=== PATIENT | male | born 1960 | race Caucasian/White ===

== ENCOUNTER → 2021-12-14 | Day surgery (SDC) | payer OTHER ==
[~2021-12-14] VITALS: Ht 167.6 cm; Wt 95.0 kg
[~2021-12-14] MED LIST: 0.9 % SODIUM CHLORIDE 10 ML DISP.SYRIN. IV PRN; ALBUTEROL SULFATE 2.5 MG/3 ML NEBU. NEB PRN; EPINEPHrine 1 MG/ML VIAL INJ PRN; HYDROmorphone 2 MG/ML INJ. IVP PRN; IV RINGERS,LACTATED 1000ML 1,000 ML IV SCH; LIDOCAINE 1% Multi-Dose 20 ML VIAL. INJ PRN; LIDOCAINE 2% PF 5 ML VIAL. ONE; LIDOCAINE 2% VISCOUS 100 ML BOTTLE. MM PRN; LIDOCAINE 4% TOPICAL 50 ML SOLUTION. MM PRN; MORPHINE SULFATE 2 MG/ML INJ. IVP PRN; PROCHLORPERAZINE 10 MG/2 ML VIAL. IVP PRN; PROPOFOL 10 MG/ML (20ML) VIAL. IV ONE; fentaNYL PF VIAL 100 MCG/2 ML VIAL IVP PRN
[2021-12-14 08:48] VITALS: BP 144/90
[2021-12-14 09:03] LABS: BASO # 0.1 x10^3/uL (0.0-0.2); BASO % 1 % (0-3); EOS # 1.3 x10^3/uL (0.0-0.7); EOS % 15 % (0-3); HEMATOCRIT 46.5 % (39.0-53.0); HEMOGLOBIN 15.9 g/dL (13.0-17.5); LYMPH # 1.5 x10^3/uL (1.0-4.8); LYMPH % 17 % (24-48); MEAN CORPUSCULAR HEMOGLOBIN 34 pg (25-35); MEAN CORPUSCULAR HGB CONC 34 g/dL (31-37); MEAN CORPUSCULAR VOLUME 100 fL (79-100); MONO # 0.5 x10^3/uL (0.0-1.1); MONO % 6 % (0-9); NEUT # 5.2 x10^3/uL (1.8-7.7); NEUT % 60 % (31-73); PLATELET COUNT 213 x10^3/uL (140-400); RED BLOOD COUNT 4.65 x10^6/uL (4.30-5.70); RED CELL DISTRIBUTION WIDTH 13.2 % (11.5-14.5); WHITE BLOOD COUNT 8.6 x10^3/uL (4.0-11.0)
[2021-12-14 09:13] LABS: PROTHROMBIN TIME PATIENT 12.1 SEC (11.7-14.0)
[2021-12-14 10:09] LABS: % BANDS 1 % (0-9); % EOS 7 % (0-5); % LYMPHS 23 % (24-48); % MONOS 5 % (0-10); % SEGS 64 % (35-66)
[2021-12-14 10:10] LABS: PLT ESTIMATE ADEQUATE (ADEQUATE)
[2021-12-14 10:30] VITALS: BP 188/82
--- NOTE | 2021-12-14 12:22 | OP ---
DATE OF SURGERY: 12/14/2021 BRONCHOSCOPY NOTE INDICATION: Abnormal CT chest, rule out mucus plug. DESCRIPTION OF PROCEDURE: Informed consent was obtained from the patient. All risks and benefits were explained. He agreed to proceed with the procedure. Propofol was used by anesthesia for sedation. Bronchoscopy was initially attempted through the left nostril, but they were tightened and it was later introduced through the right nostril. The upper airway was passed. Trachea was entered. No tracheal lesions seen. Mellisa was sharp. Left lung was examined. Upon inspection of the left lower lobe bronchus. Immediately, there was a minimal white secretions seen. Saline irrigation done. Secretions were removed. A bronchoalveolar lavage performed from the left lower lobe. Small amount of fluid was obtained. No definite endobronchial lesion seen. Left upper lobe and lingula were patent. The right lung was quickly examined. The patient had no significant secretions or any airway lesion in the right upper, right middle or right lower lobe. The patient did drop saturations during the procedure in the high 50s. The patient's saturations quickly came back with high-flow oxygen. IMPRESSION: 1. Minimal white secretions seen in the left lower lobe posteromedially. 2. No endobronchial lesion seen. 3. Bronchoalveolar lavage performed from the left lower lobe. 4. Follow the culture results. JOANNA DR: Coretta TID: [id number]
== END | disposition home or self-care (01) ==
LOC: SURG 08:28
PROVIDERS: ATTEND Internal Medicine Critical Care Medicine
DX: R91.8 Other nonspecific abnormal finding of lung field (principal); I10 Essential (primary) hypertension; E78.00 Pure hypercholesterolemia, unspecified; K21.9 Gastro-esophageal reflux disease without esophagitis; N40.0 Benign prostatic hyperplasia without lower urinary tract symptoms; F41.9 Anxiety disorder, unspecified; F32.9 Major depressive disorder, single episode, unspecified; Z79.899 Other long term (current) drug therapy; Z98.890 Other specified postprocedural states; Z79.01 Long term (current) use of anticoagulants
CPT/HCPCS: 31624; 36415; 85007; 85025; 85610; 85730; 87070; 87205; 94640; J0171; J2704; J3490; 31622

== ENCOUNTER → 2021-12-24 | Day surgery (SDC) | payer OTHER ==
[~2021-12-24] VITALS: Ht 167.6 cm; Wt 96.0 kg
[~2021-12-24] MED LIST changes: -0.9 % SODIUM CHLORIDE 10 ML DISP.SYRIN. IV PRN; -ALBUTEROL SULFATE 2.5 MG/3 ML NEBU. NEB PRN; +AMLO-187 PO; +CLONAZEPAM1 MG PO; +CRESTOR5 MG PO; -EPINEPHrine 1 MG/ML VIAL INJ PRN; -HYDROmorphone 2 MG/ML INJ. IVP PRN; -LIDOCAINE 1% Multi-Dose 20 ML VIAL. INJ PRN; -LIDOCAINE 2% PF 5 ML VIAL. ONE; -LIDOCAINE 2% VISCOUS 100 ML BOTTLE. MM PRN; -LIDOCAINE 4% TOPICAL 50 ML SOLUTION. MM PRN; +LISI10TA16 PO; +METO25TA4 PO; -MORPHINE SULFATE 2 MG/ML INJ. IVP PRN; -PROCHLORPERAZINE 10 MG/2 ML VIAL. IVP PRN; +TAMS0.4C97 PO
[2021-12-24 07:28] VITALS: BP 165/96
[2021-12-24 08:22] VITALS: BP 156/93
--- NOTE | 2021-12-27 17:08 | PATHOLOGY ---
[facility] Accession Number: [id number] . 01 Material submitted: . colon - ASCENDING COLON POLYPS BIOPSY . 01 Clinical history: . EPIGASTRIC PAIN, CRC SCREENING . 02 Diagnosis: Colon biopsies, ascending colon polyps: - Tubular adenomas. ([facility]; 12/27/2021) [facility] 12/27/2021 1441 Local . 02 Comment: There is no high-grade dysplasia or evidence of malignancy. ([facility]; 12/27/2021) . . 02 Electronically signed: . Ventura Walker MD, Pathologist NPI- [id number] . 01 Gross description: . The specimen is received in formalin, labeled "Joss Mcbride, ascending colon polyps bx". Received are multiple, each mejias, soft tissue fragments, ranging in size from 0.2-0.3 cm, in greatest dimension. The specimen is entirely submitted in cassette A1. (J; 12/24/2021) JGG/J 12/27/2021 1440 Local . 02 Pathologist provided ICD-10: D12.2 . 02 CPT . 508501 Specimen Comment: A courtesy copy of this report has been sent to [phone] Specimen Comment: Report sent to Specimen Comment: A duplicate report has been generated due to demographic updates. [facility]formed at: [facility] [address] [facility] [address], [place] [id number] MD Johnnie Squires MD Phone: [phone] [facility]formed at: [facility] [address] [place], [place] [id number] MD Ventura Walker MD Phone: [phone]
== END | disposition home or self-care (01) ==
LOC: SURG 07:06
PROVIDERS: ATTEND Internal Medicine Gastroenterology
DX: Z12.11 Encounter for screening for malignant neoplasm of colon (principal); K64.0 First degree hemorrhoids; D12.2 Benign neoplasm of ascending colon; K63.89 Other specified diseases of intestine; K31.89 Other diseases of stomach and duodenum; K57.30 Diverticulosis of large intestine without perforation or abscess without bleeding; R10.13 Epigastric pain; K29.50 Unspecified chronic gastritis without bleeding; I10 Essential (primary) hypertension; E78.00 Pure hypercholesterolemia, unspecified; K21.9 Gastro-esophageal reflux disease without esophagitis; F41.9 Anxiety disorder, unspecified; F32.9 Major depressive disorder, single episode, unspecified; N40.0 Benign prostatic hyperplasia without lower urinary tract symptoms; Z79.899 Other long term (current) drug therapy; Z98.890 Other specified postprocedural states
CPT/HCPCS: 43235; 45380; J2704; 88305